=== PATIENT | female | born 1940 | race Caucasian/White ===

== ENCOUNTER 2016-08-04 16:52 | Inpatient (IN) | payer OTHER ==
[~2016-08-04] VITALS: Ht 160 cm; Wt 69.0 kg
[~2016-08-04 16:52] MED LIST: ADVAIR 250-501 EACH IH; ASCORBIC ACID500 M3 PO; B-COMPLEX-VITA1 EACH PO; BENADRYL25 MG PO; BENTYL20 MG PO; Bentyl PO; CALCIUM 600 +1 EACH PO; CELEBREX200 MG PO; CHILD ASPIRIN81 M1 PO; CLARITIN5 MG PO; COUMADIN1 MG PO; CRESTOR40 MG PO; Coumadin dosing per PO; Desyrel PO; FEOSOL325 MG PO; FOLIC ACID1 MG PO; GLUCAGEN1 MG IM/SC; HYDROCHLOROTHIA25 MG PO; Hydrodiuril,Oretic,E PO; MILK OF MAGNESI10 ML PO; NEXIUM40 MG PO; NITROQUICK0.3 MG SL; NOVOLOG PE100 UNITS/ SC; OMEGA 3-6-91200 MG PO; OXYCODONE HCL5 MG PO; OXYCONTIN10 MG PO; PLAVIX75 MG PO; PREVACID SOLUTA30 MG PO; PROAIR HFA8.5 GM IH; Proventil,Ventolin H IH; REQUIP1 MG PO; REQUIP3 MG PO; SENNA-TIME S T1 EACH PO; SENOKOT S,PE1 TABLET PO; TOPROL XL50 MG PO; TRAZODONE HCL50 MG PO; TYLENOL REGULA325 MG PO; Tums PO; URECHOLINE25 MG PO; VENTOLIN HFA18 GM IH; VITAMIN B12-FO1 EACH PO; VITAMIN D5000 UNIT PO; VYTORIN 10-801 EACH PO; Vicodin,Lortab 5/500 PO; ZOLOFT100 MG PO
[2016-08-04 17:53] LABS: EOSINOPHIL COUNT 0.2 K/uL (0-0.3); HEMATOCRIT 37.7 % (36.0-46.0); IMMATURE GRANULOCYTE (%) 0.9 % (0.0-0.7); IMMATURE GRANULOCYTE COUNT 0.1 K/uL; INSTRUMENT ABS NEUTROPHIL CT 6.3 K/uL; LYMPHOCYTE COUNT 2.4 K/uL (1.0-2.8); MCH 26.2 PG (29.0-34.0); MCV 77.3 FL (83-99); MEAN PLAT.VOLUME 10.3 uM^3 (9.5-12.4); MONOCYTE (%) 6.9 % (3-12); MONOCYTE COUNT 0.7 K/uL (0-0.8); NEUTROPHIL (%) 64.9 % (45-76); NEUTROPHIL COUNT 6.3 K/uL (1.8-6.4); PLATELET COUNT 171 K/uL (156-360); RBC DIS.WIDTH-SD 39.2 % (39-53); RED BLOOD COUNT 4.88 M/uL (3.80-5.20); WHITE BLOOD COUNT 9.7 K/uL (4.1-10.2)
[2016-08-04 18:18] LABS: TROP-I INTERPRETATION NEGATIVE; TROPONIN-I 0.01 ng/mL (0.0-0.30)
[2016-08-04 18:31] LABS: D-DIMER ELISA 1.11 mg/L FEU (< 0.57)
[2016-08-04 18:41] LABS: CHLORIDE 104 mEq/L (99-109); POTASSIUM 2.5 mEq/L (3.7-5.4); SODIUM 141 mEq/L (136-147)
[2016-08-04 18:43] LABS: GLUCOSE 97 mg/dL (70-99)
[2016-08-04 18:44] LABS: ANION GAP 14 MEQ/L (2-14)
[2016-08-04 18:45] LABS: TOTAL BILIRUBIN 1.1 mg/dL (0.0-1.0)
[2016-08-04 18:47] LABS: ALKALINE PHOSPHATASE 65 IU/L (3-129); GFR ESTIMATE (CALCULATED) 51 mL/min/
[2016-08-04 18:48] LABS: UREA NITROGEN (BUN) 18 mg/dL (9-23)
[2016-08-04] MEDS ORDERED: CYANOCOBALAM1000 MCG PO (22:04)
[2016-08-04] MEDS ORDERED: VITAMIN D35000 UNIT PO (22:05)
[2016-08-04] MEDS ORDERED: K-DUR10 MEQ PO (22:07)
[2016-08-04] MEDS ORDERED: LO-DOSE ASPIRIN81 M2 PO (22:08)
[2016-08-04] MEDS ORDERED: VITAMIN E400 UNIT PO (22:08)
[2016-08-04] MEDS ORDERED: NITROSTAT0.4 MG SL (22:10)
[2016-08-05 01:44] VITALS: BP 177/86
[2016-08-05 03:15] LABS: HEMATOCRIT 39.5 % (36.0-46.0); MCH 25.8 PG (29.0-34.0); MCHC 32.7 G/DL (30.0-36.0); PLATELET COUNT 176 K/uL (156-360); RBC DIS.WIDTH-CV 14.4 % (11.8-14.6); RBC DIS.WIDTH-SD 40.7 % (39-53); WHITE BLOOD COUNT 11.6 K/uL (4.1-10.2)
[2016-08-05 03:26] LABS: CHLORIDE 107 mEq/L (99-109); SODIUM 140 mEq/L (136-147)
[2016-08-05 03:29] LABS: ANION GAP 12 MEQ/L (2-14)
[2016-08-05 03:30] LABS: GLUCOSE 149 mg/dL (70-99); POTASSIUM 4.9 mEq/L (3.7-5.4)
[2016-08-05 03:31] LABS: GFR ESTIMATE (CALCULATED) 47 mL/min/
[2016-08-05 03:32] LABS: UREA NITROGEN (BUN) 18 mg/dL (9-23)
[2016-08-05 04:23] VITALS: BP 168/68
[2016-08-05 08:27] VITALS: BP 145/65
[2016-08-05 20:25] VITALS: BP 137/63
[2016-08-06 00:19] VITALS: BP 140/69
[2016-08-06 04:31] VITALS: BP 129/62
[2016-08-06 08:10] VITALS: BP 148/71
[2016-08-06] MEDS ORDERED: AZITHROMYCIN500 M1 PO (11:21)
[2016-08-06 11:45] VITALS: BP 135/65
== END 2016-08-06 12:34 | disposition home or self-care (01) | DRG 191 ==
LOC: EME 16:52 → EDOF 08-05 00:16 → 3EAST 08-05 00:16
PROVIDERS: Emergency Medicine; Hospitalist
PROC: 5A09357 Assistance with Respiratory Ventilation, Less than 24 Consecutive Hours, Continuous Positive Airway Pressure (ICD-10-PCS; principal; 2016-08-05)
DX: J44.1 Chronic obstructive pulmonary disease with (acute) exacerbation (principal); J44.0 Chronic obstructive pulmonary disease with (acute) lower respiratory infection; J20.9 Acute bronchitis, unspecified; E87.6 Hypokalemia; I35.0 Nonrheumatic aortic (valve) stenosis; I11.0 Hypertensive heart disease with heart failure; I50.32 Chronic diastolic (congestive) heart failure; I27.2 Other secondary pulmonary hypertension; G47.30 Sleep apnea, unspecified; J45.909 Unspecified asthma, uncomplicated; I25.10 Atherosclerotic heart disease of native coronary artery without angina pectoris; M06.9 Rheumatoid arthritis, unspecified; G25.81 Restless legs syndrome; F32.9 Major depressive disorder, single episode, unspecified; E11.9 Type 2 diabetes mellitus without complications; M79.7 Fibromyalgia; I25.2 Old myocardial infarction; Z95.5 Presence of coronary angioplasty implant and graft; Z86.73 Personal history of transient ischemic attack (TIA), and cerebral infarction without residual deficits
CPT/HCPCS: 71010; 71275; 80048; 80053; 83735; 83880; 84132; 84484; 85025; 85027; 85379; 93005; 93306; 94640; 94640 76; 94644; 94660; 99202; 99281; 99285; J1644; J2930; J3480; J7512

== ENCOUNTER 2017-01-05 06:36 | Day surgery (SDC) | payer OTHER ==
[~2017-01-05] VITALS: Ht 160 cm; Wt 70.0 kg
[~2017-01-05 06:36] MED LIST changes: +AZITHROMYCIN500 M1 PO; +CYANOCOBALAM1000 MCG PO; +ISOSORBIDE DINI30 MG PO; +K-DUR10 MEQ PO; +LO-DOSE ASPIRIN81 M2 PO; +NITROSTAT0.4 MG SL; +TRIAMTERENE-HC1 EACH PO; +VITAMIN D35000 UNIT PO; +VITAMIN E400 UNIT PO
== END 2017-01-05 15:00 | disposition home or self-care (01) ==
LOC: CATH 06:36
DX: I25.119 Atherosclerotic heart disease of native coronary artery with unspecified angina pectoris (principal); Z95.5 Presence of coronary angioplasty implant and graft; I10 Essential (primary) hypertension; E78.5 Hyperlipidemia, unspecified; M06.9 Rheumatoid arthritis, unspecified; I42.1 Obstructive hypertrophic cardiomyopathy; I27.2 Other secondary pulmonary hypertension; G47.33 Obstructive sleep apnea (adult) (pediatric); G25.81 Restless legs syndrome; J44.9 Chronic obstructive pulmonary disease, unspecified; K44.9 Diaphragmatic hernia without obstruction or gangrene; F32.9 Major depressive disorder, single episode, unspecified; Z79.82 Long term (current) use of aspirin
CPT/HCPCS: 93005; C1769; C1887; J1644; J2250; J3010

== ENCOUNTER 2017-10-09 07:20 | Emergency (ER) | payer OTHER ==
[~2017-10-09] VITALS: Ht 160 cm; Wt 71.2 kg
[2017-10-09 07:59] LABS: HEMATOCRIT 32.6 % (36.0-46.0); HEMOGLOBIN 10.9 G/DL (11.9-15.5); MCH 26.6 PG (29.0-34.0); MCHC 33.4 G/DL (30.0-36.0); MCV 79.5 FL (83-99); PLATELET COUNT 123 K/uL (156-360); RBC DIS.WIDTH-CV 14.2 % (11.8-14.6); RBC DIS.WIDTH-SD 41.1 % (39-53)
[2017-10-09 08:25] LABS: ALBUMIN 3.9 G/DL (3.2-4.8); ALKALINE PHOSPHATASE 58 IU/L (3-129); ALT (GPT) 12 IU/L (3-49); AST (GOT) 13 IU/L (2-34); CHLORIDE 103 MEQ/L (99-109); CREATININE 1.1 MG/DL (0.6-1.3); GFR ESTIMATE (CALCULATED) 51 mL/min/; GLUCOSE 101 mg/dL (70-99); LIPASE 33 U/L (1.0-51.0); POTASSIUM 3.4 MEQ/L (3.7-5.4); SODIUM 140 MEQ/L (136-147); TOTAL BILIRUBIN 0.8 MG/DL (0.0-1.0); TOTAL PROTEIN 7.2 G/DL (6.4-8.3); UREA NITROGEN (BUN) 17 mg/dL (9-23)
[2017-10-09 08:56] LABS: APPEARANCE SL.HAZY ((CLEAR)); BILIRUBIN NEGATIVE; BLOOD NEGATIVE; COLOR YELLOW ((YELLOW)); GLUCOSE (STRIP) NEGATIVE; KETONES NEGATIVE; LEUKOCYTES SMALL; NITRITE POSITIVE; PROTEIN (STRIP) NEGATIVE; SPECIFIC GRAVITY 1.014 (1.000-1.030); UROBILINOGEN 0.2 MG/DL (0.2-1.0)
[2017-10-09 09:01] LABS: BACTERIA 1+ /HPF; EPITHELIAL CELLS 1+ /HPF; MUCUS TRACE /LPF; RED BLOOD CELLS 0-5 /HPF (0-5); UCUL ADDED? YES; WHITE BLOOD CELLS 15-20 /HPF (0-5)
[2017-10-09] MEDS ORDERED: CIPRO500 MG PO (09:45)
[2017-10-09] MEDS ORDERED: FLAGYL500 MG PO (09:45)
[2017-10-09 10:20] VITALS: BP 128/54
== END 2017-10-09 10:30 | disposition home or self-care (01) ==
LOC: EME 07:20
PROVIDERS: Physician Assistant
DX: K57.32 Diverticulitis of large intestine without perforation or abscess without bleeding (principal); N39.0 Urinary tract infection, site not specified; K44.9 Diaphragmatic hernia without obstruction or gangrene; J44.9 Chronic obstructive pulmonary disease, unspecified; I10 Essential (primary) hypertension; I25.2 Old myocardial infarction; Z86.73 Personal history of transient ischemic attack (TIA), and cerebral infarction without residual deficits; Z79.82 Long term (current) use of aspirin
CPT/HCPCS: 74177; 80053; 81003; 83690; 85027; 87077; 87086; 87186; 99281; 99285; J7030

== ENCOUNTER 2017-10-15 21:32 | Inpatient (IN) | payer OTHER ==
[~2017-10-15] VITALS: Ht 160 cm; Wt 68.3 kg
[~2017-10-15 21:32] MED LIST changes: -ADVAIR 250-501 EACH IH; +ADVAIR 250/501 DISK IH; +CIPRO500 MG PO; +FLAGYL500 MG PO; +IMDUR30 MG PO; -ISOSORBIDE DINI30 MG PO; +MAXZIDE 37.5 M1 EACH PO; -REQUIP1 MG PO; -TRIAMTERENE-HC1 EACH PO
[2017-10-15 22:35] LABS: HEMATOCRIT 30.7 % (36.0-46.0); HEMOGLOBIN 10.4 G/DL (11.9-15.5); MCH 26.8 PG (29.0-34.0); MCHC 33.9 G/DL (30.0-36.0); MCV 79.1 FL (83-99); PLATELET COUNT 172 K/uL (156-360); RBC DIS.WIDTH-CV 14.3 % (11.8-14.6); RBC DIS.WIDTH-SD 40.5 % (39-53); RED BLOOD COUNT 3.88 M/uL (3.80-5.20); WHITE BLOOD COUNT 7.2 K/uL (4.1-10.2)
[2017-10-15 22:36] LABS: CHLORIDE 106 mEq/L (99-109); POTASSIUM 3.4 mEq/L (3.7-5.4)
[2017-10-15 22:37] LABS: SODIUM 139 mEq/L (136-147)
[2017-10-15 22:39] LABS: GLUCOSE 109 mg/dL (70-99); TOTAL PROTEIN 6.3 g/dL (6.4-8.3)
[2017-10-15 22:41] LABS: TOTAL BILIRUBIN 0.5 mg/dL (0.0-1.0)
[2017-10-15 22:42] LABS: ALKALINE PHOSPHATASE 68 IU/L (3-129); CREATININE 1.1 mg/dL (0.6-1.3); GFR ESTIMATE (CALCULATED) 51 mL/min/
[2017-10-15 22:44] LABS: APPEARANCE CLEAR ((CLEAR)); BILIRUBIN NEGATIVE; BLOOD NEGATIVE; COLOR YELLOW ((YELLOW)); GLUCOSE (STRIP) NEGATIVE; KETONES NEGATIVE; LEUKOCYTES SMALL; NITRITE NEGATIVE; PROTEIN (STRIP) NEGATIVE; SPECIFIC GRAVITY 1.019 (1.000-1.030); UROBILINOGEN 0.2 MG/DL (0.2-1.0)
[2017-10-15 22:44] LABS: AST (GOT) 21 IU/L (2-34); UREA NITROGEN (BUN) 20 mg/dL (9-23)
[2017-10-15 22:45] LABS: ALT (GPT) 19 IU/L (3-49)
[2017-10-15 22:50] LABS: BACTERIA RARE /HPF; EPITHELIAL CELLS 1+ /HPF; MUCUS TRACE /LPF; RED BLOOD CELLS 0-5 /HPF (0-5); UCUL ADDED? YES
[2017-10-16] MEDS ORDERED: PROTONIX40 MG PO (01:25)
[2017-10-16] MEDS ORDERED: SINGULAIR10 MG PO (01:25)
[2017-10-16] MEDS ORDERED: RANEXA500 MG PO (01:25)
[2017-10-16 01:50] LABS: INTER. NORMALIZED RATIO 1.2
[2017-10-16 01:52] LABS: PTT 28.5 SEC (25-37)
[2017-10-16 02:21] VITALS: BP 132/92
[2017-10-16 04:19] VITALS: BP 148/80
[2017-10-16 05:56] LABS: HEMATOCRIT 31.2 % (36.0-46.0); HEMOGLOBIN 10.1 G/DL (11.9-15.5); MCV 79.8 FL (83-99)
[2017-10-16 07:18] LABS: C DIFF TOXIN NEGATIVE (NEGATIVE)
[2017-10-16 08:06] VITALS: BP 148/67
[2017-10-16 11:06] VITALS: BP 159/69
[2017-10-16 11:58] LABS: HEMATOCRIT 30.6 % (36.0-46.0); HEMOGLOBIN 9.7 G/DL (11.9-15.5); MCV 80.3 FL (83-99)
[2017-10-16 15:31] VITALS: BP 146/67
[2017-10-16 17:51] LABS: HEMATOCRIT 33.7 % (36.0-46.0); HEMOGLOBIN 10.7 G/DL (11.9-15.5); MCV 80.6 FL (83-99)
[2017-10-16 19:34] VITALS: BP 157/75
[2017-10-17] VITALS (8 sets, daily range): BP systolic 140–189; BP diastolic 72–92
[2017-10-17 00:43] LABS: HEMATOCRIT 30.4 % (36.0-46.0)
[2017-10-17 06:51] LABS: HEMATOCRIT 35.1 % (36.0-46.0); HEMOGLOBIN 11.2 G/DL (11.9-15.5); MCH 25.7 PG (29.0-34.0); MCHC 31.9 G/DL (30.0-36.0); MCV 80.7 FL (83-99); PLATELET COUNT 190 K/uL (156-360); RBC DIS.WIDTH-CV 14.3 % (11.8-14.6); RBC DIS.WIDTH-SD 41.8 % (39-53); RED BLOOD COUNT 4.35 M/uL (3.80-5.20); WHITE BLOOD COUNT 5.9 K/uL (4.1-10.2)
[2017-10-17 07:14] LABS: ALBUMIN 4.2 G/DL (3.2-4.8); ALKALINE PHOSPHATASE 57 IU/L (3-129); ALT (GPT) 17 IU/L (3-49); AST (GOT) 21 IU/L (2-34); CHLORIDE 104 MEQ/L (99-109); GFR ESTIMATE (CALCULATED) 57 mL/min/; GLUCOSE 101 mg/dL (70-99); PHOSPHORUS 4.3 mg/dL (2.5-4.9); POTASSIUM 3.7 MEQ/L (3.7-5.4); SODIUM 140 MEQ/L (136-147); TOTAL BILIRUBIN 0.8 MG/DL (0.0-1.0); TOTAL PROTEIN 6.4 G/DL (6.4-8.3); UREA NITROGEN (BUN) 12 mg/dL (9-23)
[2017-10-18] VITALS (7 sets, daily range): BP systolic 117–189; BP diastolic 65–85
[2017-10-18 05:47] LABS: HEMATOCRIT 31.5 % (36.0-46.0); MCH 25.3 PG (29.0-34.0); MCHC 31.7 G/DL (30.0-36.0); MCV 79.5 FL (83-99); PLATELET COUNT 170 K/uL (156-360); RBC DIS.WIDTH-CV 14.1 % (11.8-14.6); RBC DIS.WIDTH-SD 40.5 % (39-53); RED BLOOD COUNT 3.96 M/uL (3.80-5.20); WHITE BLOOD COUNT 5.4 K/uL (4.1-10.2)
[2017-10-18 06:15] LABS: CHLORIDE 106 MEQ/L (99-109); GFR ESTIMATE (CALCULATED) 57 mL/min/; GLUCOSE 104 mg/dL (70-99); POTASSIUM 3.7 MEQ/L (3.7-5.4); SODIUM 143 MEQ/L (136-147); UREA NITROGEN (BUN) 10 mg/dL (9-23)
[2017-10-18 12:33] LABS: HEMATOCRIT 32.1 % (36.0-46.0); HEMOGLOBIN 10.4 G/DL (11.9-15.5); MCV 79.1 FL (83-99)
[2017-10-18 18:00] LABS: HEMATOCRIT 31.7 % (36.0-46.0); HEMOGLOBIN 10.4 G/DL (11.9-15.5); MCV 79.8 FL (83-99)
[2017-10-19 03:30] VITALS: BP 158/68
[2017-10-19 05:30] LABS: HEMATOCRIT 32.8 % (36.0-46.0); HEMOGLOBIN 10.6 G/DL (11.9-15.5); MCH 25.9 PG (29.0-34.0); MCHC 32.3 G/DL (30.0-36.0); PLATELET COUNT 162 K/uL (156-360); RBC DIS.WIDTH-CV 14.3 % (11.8-14.6); RBC DIS.WIDTH-SD 41.4 % (39-53); WHITE BLOOD COUNT 5.1 K/uL (4.1-10.2)
[2017-10-19 06:07] LABS: ALBUMIN 3.9 G/DL (3.2-4.8); CHLORIDE 104 MEQ/L (99-109); GFR ESTIMATE (CALCULATED) 57 mL/min/; GLUCOSE 110 mg/dL (70-99); POTASSIUM 3.6 MEQ/L (3.7-5.4); SODIUM 142 MEQ/L (136-147); UREA NITROGEN (BUN) 10 mg/dL (9-23)
[2017-10-19 07:14] VITALS: BP 166/72
[2017-10-19 15:18] VITALS: BP 130/64
[2017-10-19 16:37] VITALS: BP 129/62
[2017-10-20 00:09] VITALS: BP 143/71
[2017-10-20 05:53] LABS: HEMOGLOBIN 10.8 G/DL (11.9-15.5); MCH 25.5 PG (29.0-34.0); MCHC 31.8 G/DL (30.0-36.0); MCV 80.4 FL (83-99); PLATELET COUNT 173 K/uL (156-360); RBC DIS.WIDTH-CV 14.5 % (11.8-14.6); RED BLOOD COUNT 4.23 M/uL (3.80-5.20); WHITE BLOOD COUNT 4.8 K/uL (4.1-10.2)
[2017-10-20 06:27] LABS: CHLORIDE 104 MEQ/L (99-109); GFR ESTIMATE (CALCULATED) 57 mL/min/; GLUCOSE 101 mg/dL (70-99); POTASSIUM 3.9 MEQ/L (3.7-5.4); SODIUM 141 MEQ/L (136-147); UREA NITROGEN (BUN) 12 mg/dL (9-23)
[2017-10-20] MEDS ORDERED: CIPRO500 MG PO (07:42)
[2017-10-20] MEDS ORDERED: FLORASTOR250 MG PO (07:42)
[2017-10-20] MEDS ORDERED: FLAGYL500 MG PO (07:42)
[2017-10-20] MEDS ORDERED: AMLODIPINE BESYL5 MG PO (07:42)
[2017-10-20 07:43] VITALS: BP 191/81
== END 2017-10-20 13:31 | disposition home or self-care (01) | DRG 378 ==
LOC: EME 21:32 → 5SOUTH 10-16 01:03 → EDOF 10-16 01:03 → ENRESERV 10-16 01:13 → 5SOUTH 10-16 02:01
PROVIDERS: Internal Medicine; Internal Medicine Gastroenterology; Physician Assistant Medical; Surgery
DX: K57.33 Diverticulitis of large intestine without perforation or abscess with bleeding (principal); N39.0 Urinary tract infection, site not specified; B96.20 Unspecified Escherichia coli [E. coli] as the cause of diseases classified elsewhere; I80.8 Phlebitis and thrombophlebitis of other sites; T82.898A Other specified complication of vascular prosthetic devices, implants and grafts, initial encounter; I11.0 Hypertensive heart disease with heart failure; I50.9 Heart failure, unspecified; I42.1 Obstructive hypertrophic cardiomyopathy; D62 Acute posthemorrhagic anemia; K55.20 Angiodysplasia of colon without hemorrhage; K64.8 Other hemorrhoids; K44.9 Diaphragmatic hernia without obstruction or gangrene; K29.70 Gastritis, unspecified, without bleeding; E87.6 Hypokalemia; K22.8 Other specified diseases of esophagus; J44.9 Chronic obstructive pulmonary disease, unspecified; E11.9 Type 2 diabetes mellitus without complications; E78.5 Hyperlipidemia, unspecified; I25.10 Atherosclerotic heart disease of native coronary artery without angina pectoris; G47.33 Obstructive sleep apnea (adult) (pediatric); K21.9 Gastro-esophageal reflux disease without esophagitis; G25.81 Restless legs syndrome; M06.9 Rheumatoid arthritis, unspecified; M19.90 Unspecified osteoarthritis, unspecified site; F32.9 Major depressive disorder, single episode, unspecified; F41.9 Anxiety disorder, unspecified; I25.2 Old myocardial infarction; Z86.73 Personal history of transient ischemic attack (TIA), and cerebral infarction without residual deficits; Z87.11 Personal history of peptic ulcer disease; Z86.010 Personal history of colon polyps; Z95.5 Presence of coronary angioplasty implant and graft; Z96.653 Presence of artificial knee joint, bilateral; Z90.710 Acquired absence of both cervix and uterus; Z79.82 Long term (current) use of aspirin
CPT/HCPCS: 74177; 80048; 80053; 80069; 81003; 82948; 84100; 85014; 85018; 85027; 85610; 85730; 86850; 86900; 86901; 86920; 87086; 87493; 88305; 88342 TC; 93971; 94640; 94640 76; 99202; 99281; 99285; J0744; J1170; J1815; J2250; J3480

== ENCOUNTER 2017-12-25 22:06 | Inpatient (IN) | payer OTHER ==
[~2017-12-25] VITALS: Ht 160 cm; Wt 80.5 kg
[~2017-12-25 22:06] MED LIST changes: +AMLODIPINE BESYL5 MG PO; +ASPIRIN81 M2 PO; +FLORASTOR250 MG PO; +NORVASC5 MG PO; +PROTONIX40 MG PO; +RANEXA500 MG PO; +SINGULAIR10 MG PO; +TYLENOL EXTRA500 MG PO
[2017-12-26 10:59] VITALS: BP 132/79
[2017-12-26 20:00] VITALS: BP 142/65
[2017-12-26 21:00] VITALS: BP 142/65
[2017-12-27] VITALS: BP 118/62
[2017-12-27 04:00] VITALS: BP 106/51
[2017-12-27 06:04] LABS: HEMOGLOBIN 11.4 G/DL (11.9-15.5); MCH 25.2 PG (29.0-34.0); MCHC 32.6 G/DL (30.0-36.0); MCV 77.4 FL (83-99); PLATELET COUNT 186 K/uL (156-360); RBC DIS.WIDTH-CV 16.2 % (11.8-14.6); RED BLOOD COUNT 4.52 M/uL (3.80-5.20); WHITE BLOOD COUNT 20.1 K/uL (4.1-10.2)
[2017-12-27 06:32] LABS: CHLORIDE 103 MEQ/L (99-109); CREATININE 1.2 MG/DL (0.6-1.3); GFR ESTIMATE (CALCULATED) 46 mL/min/; GLUCOSE 179 mg/dL (70-99); SODIUM 139 MEQ/L (136-147); UREA NITROGEN (BUN) 27 mg/dL (9-23)
[2017-12-27 06:40] LABS: POTASSIUM 2.9 MEQ/L (3.7-5.4)
[2017-12-27 07:45] VITALS: BP 137/64
[2017-12-27 11:36] VITALS: BP 110/53
[2017-12-27 16:48] VITALS: BP 118/54
[2017-12-27 20:35] VITALS: BP 115/57
[2017-12-28 01:07] VITALS: BP 129/67
[2017-12-28 04:06] VITALS: BP 132/60
[2017-12-28 06:27] LABS: CHLORIDE 105 MEQ/L (99-109); CREATININE 0.9 MG/DL (0.6-1.3); GFR ESTIMATE (CALCULATED) > 59 mL/min/; POTASSIUM 3.2 MEQ/L (3.7-5.4); SODIUM 142 MEQ/L (136-147); UREA NITROGEN (BUN) 24 mg/dL (9-23)
[2017-12-28 06:28] LABS: GLUCOSE 99 mg/dL (70-99)
[2017-12-28 06:53] LABS: HEMATOCRIT 31.2 % (36.0-46.0); HEMOGLOBIN 9.9 G/DL (11.9-15.5); MCHC 31.7 G/DL (30.0-36.0); MCV 78.8 FL (83-99); RBC DIS.WIDTH-CV 16.7 % (11.8-14.6); RBC DIS.WIDTH-SD 47.3 % (39-53); RED BLOOD COUNT 3.96 M/uL (3.80-5.20); WHITE BLOOD COUNT 10.9 K/uL (4.1-10.2)
[2017-12-28 07:26] LABS: PLAT.SUFFICIENCY DECREASED
[2017-12-28 07:29] LABS: PLATELET COUNT 121 K/uL (156-360)
[2017-12-28 07:51] VITALS: BP 113/57
[2017-12-28 11:15] VITALS: BP 110/57
[2017-12-28 19:05] VITALS: BP 134/62
[2017-12-28 22:54] VITALS: BP 119/56
[2017-12-29 04:00] VITALS: BP 120/60
[2017-12-29 06:11] LABS: HEMOGLOBIN 8.3 G/DL (11.9-15.5); MCH 25.2 PG (29.0-34.0); MCHC 31.9 G/DL (30.0-36.0); PLATELET COUNT 106 K/uL (156-360); RBC DIS.WIDTH-CV 17.1 % (11.8-14.6); RBC DIS.WIDTH-SD 49.9 % (39-53); RED BLOOD COUNT 3.29 M/uL (3.80-5.20); WHITE BLOOD COUNT 6.9 K/uL (4.1-10.2)
[2017-12-29 07:00] LABS: CHLORIDE 110 MEQ/L (99-109); CREATININE 0.7 MG/DL (0.6-1.3); GFR ESTIMATE (CALCULATED) > 59 mL/min/; GLUCOSE 98 mg/dL (70-99); POTASSIUM 4.1 MEQ/L (3.7-5.4); SODIUM 137 MEQ/L (136-147); UREA NITROGEN (BUN) 21 mg/dL (9-23)
[2017-12-29 07:20] VITALS: BP 146/70
[2017-12-29 11:47] VITALS: BP 137/75
[2017-12-29 13:59] LABS: HEMATOCRIT 27.3 % (36.0-46.0); HEMOGLOBIN 8.9 G/DL (11.9-15.5); MCV 78.7 FL (83-99)
[2017-12-29 15:28] VITALS: BP 129/67
[2017-12-29 19:40] VITALS: BP 147/79
[2017-12-29 20:10] VITALS: BP 147/79
[2017-12-29 20:17] LABS: HEMATOCRIT 26.8 % (36.0-46.0); HEMOGLOBIN 8.7 G/DL (11.9-15.5); MCV 78.4 FL (83-99)
[2017-12-30 00:11] VITALS: BP 132/70
[2017-12-30 05:50] LABS: HEMATOCRIT 28.2 % (36.0-46.0); MCH 25.1 PG (29.0-34.0); MCHC 31.9 G/DL (30.0-36.0); MCV 78.8 FL (83-99); RBC DIS.WIDTH-CV 17.1 % (11.8-14.6); RBC DIS.WIDTH-SD 49.4 % (39-53); RED BLOOD COUNT 3.58 M/uL (3.80-5.20); WHITE BLOOD COUNT 7.1 K/uL (4.1-10.2)
[2017-12-30 06:01] LABS: PLATELET COUNT 148 K/uL (156-360)
[2017-12-30 06:23] LABS: CHLORIDE 109 MEQ/L (99-109); CREATININE 0.7 MG/DL (0.6-1.3); GFR ESTIMATE (CALCULATED) > 59 mL/min/; GLUCOSE 102 mg/dL (70-99); POTASSIUM 4.2 MEQ/L (3.7-5.4); SODIUM 139 MEQ/L (136-147); UREA NITROGEN (BUN) 15 mg/dL (9-23)
[2017-12-30 07:56] VITALS: BP 102/71
[2017-12-30 11:55] VITALS: BP 112/75
[2017-12-30 14:22] VITALS: BP 143/70
[2017-12-30 17:33] LABS: COMMENTS - BLOOD GASES A+C+; FI02 0.21 %; SITE LR; TOTAL RESP RATE 18 resp/min
[2017-12-30 17:34] LABS: BASE EXCESS -2.6 mEq/L (-3 to +3); BICARBONATE 20.4 mEq/L (22-26); CARBOXY HGB 1.7 % (0-5); METHEMOGLOBIN 0.6 % (0-1.5); PCO2 28 mm Hg (35-45); PO2 61 mm Hg (80-100); pH 7.47 (7.35-7.45)
[2017-12-30 19:32] VITALS: BP 127/70
[2017-12-31 00:45] VITALS: BP 160/72
[2017-12-31 06:01] LABS: HEMATOCRIT 24.7 % (36.0-46.0); MCH 25.2 PG (29.0-34.0); MCHC 32.4 G/DL (30.0-36.0); MCV 77.9 FL (83-99); PLATELET COUNT 134 K/uL (156-360); RBC DIS.WIDTH-SD 48.7 % (39-53); RED BLOOD COUNT 3.17 M/uL (3.80-5.20); WHITE BLOOD COUNT 4.6 K/uL (4.1-10.2)
[2017-12-31 06:28] LABS: CHLORIDE 108 MEQ/L (99-109); CREATININE 0.6 MG/DL (0.6-1.3); GFR ESTIMATE (CALCULATED) > 59 mL/min/; GLUCOSE 105 mg/dL (70-99); POTASSIUM 3.7 MEQ/L (3.7-5.4); SODIUM 138 MEQ/L (136-147); UREA NITROGEN (BUN) 13 mg/dL (9-23)
[2017-12-31 07:20] VITALS: BP 151/67
[2017-12-31 14:19] VITALS: BP 158/67
[2017-12-31 15:15] VITALS: BP 139/67
[2017-12-31 21:43] LABS: APPEARANCE CLEAR ((CLEAR)); BILIRUBIN NEGATIVE; BLOOD NEGATIVE; COLOR YELLOW ((YELLOW)); GLUCOSE (STRIP) NEGATIVE; KETONES NEGATIVE; LEUKOCYTES NEGATIVE; NITRITE NEGATIVE; PROTEIN (STRIP) NEGATIVE; SPECIFIC GRAVITY 1.034 (1.000-1.030); UCUL ADDED? NO; UROBILINOGEN 0.2 MG/DL (0.2-1.0)
[2018-01-01 00:09] VITALS: BP 123/72
[2018-01-01 03:05] LABS: C DIFF TOXIN NEGATIVE (NEGATIVE)
[2018-01-01 03:37] VITALS: BP 127/69
[2018-01-01 06:01] LABS: HEMATOCRIT 27.9 % (36.0-46.0); HEMOGLOBIN 8.9 G/DL (11.9-15.5); MCH 24.7 PG (29.0-34.0); MCHC 31.9 G/DL (30.0-36.0); MCV 77.5 FL (83-99); PLATELET COUNT 154 K/uL (156-360); RBC DIS.WIDTH-CV 17.1 % (11.8-14.6); RBC DIS.WIDTH-SD 48.5 % (39-53); WHITE BLOOD COUNT 8.1 K/uL (4.1-10.2)
[2018-01-01 06:38] LABS: ALBUMIN 2.4 G/DL (3.2-4.8); ALKALINE PHOSPHATASE 59 IU/L (3-129); ALT (GPT) 20 IU/L (3-49); AST (GOT) 16 IU/L (2-34); CHLORIDE 106 MEQ/L (99-109); CREATININE 0.7 MG/DL (0.6-1.3); GFR ESTIMATE (CALCULATED) > 59 mL/min/; GLUCOSE 113 mg/dL (70-99); POTASSIUM 3.6 MEQ/L (3.7-5.4); SODIUM 139 MEQ/L (136-147); TOTAL BILIRUBIN 0.7 MG/DL (0.0-1.0); TOTAL PROTEIN 4.5 G/DL (6.4-8.3); UREA NITROGEN (BUN) 11 mg/dL (9-23)
[2018-01-01 07:30] VITALS: BP 158/74
[2018-01-01 15:30] VITALS: BP 132/66
[2018-01-01 20:33] VITALS: BP 124/56
[2018-01-02 00:24] VITALS: BP 133/60
[2018-01-02 05:14] VITALS: BP 106/56
[2018-01-02 06:18] LABS: HEMOGLOBIN 7.5 G/DL (11.9-15.5); MCH 25.1 PG (29.0-34.0); MCHC 32.6 G/DL (30.0-36.0); MCV 76.9 FL (83-99); NRBC (%) 0.3 /100 WBC (0-0); PLATELET COUNT 149 K/uL (156-360); RBC DIS.WIDTH-CV 17.1 % (11.8-14.6); RBC DIS.WIDTH-SD 48.5 % (39-53); RED BLOOD COUNT 2.99 M/uL (3.80-5.20)
[2018-01-02 06:40] LABS: CHLORIDE 106 MEQ/L (99-109); CREATININE 0.7 MG/DL (0.6-1.3); GFR ESTIMATE (CALCULATED) > 59 mL/min/; GLUCOSE 97 mg/dL (70-99); POTASSIUM 3.4 MEQ/L (3.7-5.4); SODIUM 138 MEQ/L (136-147); UREA NITROGEN (BUN) 12 mg/dL (9-23)
[2018-01-02 07:42] VITALS: BP 156/64
[2018-01-02 11:44] VITALS: BP 153/72
[2018-01-02] MEDS ORDERED: CHLORZOXAZONE500 MG PO (13:40)
[2018-01-02] MEDS ORDERED: FLORASTOR250 MG PO (13:40)
[2018-01-02] MEDS ORDERED: AUGMENTIN875 MG PO (13:40)
[2018-01-02] MEDS ORDERED: COLACE100 MG PO (13:40)
[2018-01-02] MEDS ORDERED: ROXICODONE5 MG PO (13:40)
[2018-01-02 16:49] VITALS: BP 128/57
== END 2018-01-02 18:30 | DRG 327 ==
LOC: 2SOUTH → ENRESERV 22:06 → 2SOUTH 12-26 09:26 → 5EAST 12-26 09:37 → 2SOUTH 12-26 10:14 → ENRESERV 12-26 14:35 → 5EAST 12-26 20:37
PROVIDERS: Hospitalist; Surgery
PROC: 0DTG0ZZ Resection of Left Large Intestine, Open Approach (ICD-10-PCS; principal; 2017-12-26)
PROC: 0BQT0ZZ Repair Diaphragm, Open Approach (ICD-10-PCS; principal; 2017-12-26)
PROC: 0HB7XZZ Excision of Abdomen Skin, External Approach (ICD-10-PCS; principal; 2017-12-26)
PROC: 0DH60UZ Insertion of Feeding Device into Stomach, Open Approach (ICD-10-PCS; principal; 2017-12-26)
PROC: 0DS60ZZ Reposition Stomach, Open Approach (ICD-10-PCS; principal; 2017-12-26)
PROC: 0DJD8ZZ Inspection of Lower Intestinal Tract, Via Natural or Artificial Opening Endoscopic (ICD-10-PCS; principal; 2017-12-26)
PROC: 0DU Gastrointestinal System, Supplement (ICD-10-PCS; principal; 2017-12-26)
PROC: 0DBU0ZZ Excision of Omentum, Open Approach (ICD-10-PCS; principal; 2017-12-26)
DX: K57.21 Diverticulitis of large intestine with perforation and abscess with bleeding (principal); K44.0 Diaphragmatic hernia with obstruction, without gangrene; E87.6 Hypokalemia; D64.9 Anemia, unspecified; T14.8XXA Other injury of unspecified body region, initial encounter; K21.0 Gastro-esophageal reflux disease with esophagitis; J44.9 Chronic obstructive pulmonary disease, unspecified; I27.20 Pulmonary hypertension, unspecified; I42.1 Obstructive hypertrophic cardiomyopathy; L90.5 Scar conditions and fibrosis of skin; R06.82 Tachypnea, not elsewhere classified; G89.18 Other acute postprocedural pain; E66.9 Obesity, unspecified; Z68.31 Body mass index [BMI] 31.0-31.9, adult; I10 Essential (primary) hypertension; G47.33 Obstructive sleep apnea (adult) (pediatric); I25.10 Atherosclerotic heart disease of native coronary artery without angina pectoris; E78.5 Hyperlipidemia, unspecified; K58.0 Irritable bowel syndrome with diarrhea; G25.81 Restless legs syndrome; M79.7 Fibromyalgia; M81.0 Age-related osteoporosis without current pathological fracture; M19.90 Unspecified osteoarthritis, unspecified site; I25.2 Old myocardial infarction; T65.221A Toxic effect of tobacco cigarettes, accidental (unintentional), initial encounter; F41.9 Anxiety disorder, unspecified; F32.9 Major depressive disorder, single episode, unspecified; Z86.73 Personal history of transient ischemic attack (TIA), and cerebral infarction without residual deficits; Z95.5 Presence of coronary angioplasty implant and graft; Z96.653 Presence of artificial knee joint, bilateral; Z90.710 Acquired absence of both cervix and uterus
CPT/HCPCS: 36600; 71046; 71275; 74177; 80048; 80053; 81003; 85014; 85018; 85027; 87493; 88307; 93005; 94640; 94660; 94799; 97530 GP; B4087; J0131; J0360; J1100; J1170; J1650; J1940; J2175; J2310; J2405; J2543; J2710; J3010; J3480; J7042; J7050; J7643; Q0175; S0074